=== PATIENT | male | born 1935 | race Caucasian/White ===

== ENCOUNTER 2021-09-29 15:02 | Inpatient (IN) ==
[2021-09-29] MEDS ORDERED: SIMETHICONE CHEW 125 MG TABLET PO PRN (15:04)
[2021-09-29] MEDS ORDERED: ONDANSETRON 4 MG/2 ML VIAL IV PRN (15:04)
[2021-09-29] MEDS ORDERED: ACETAMINOPHEN 325 MG TABLET PO PRN (15:04)
[2021-09-29] MEDS ORDERED: GLUCAGON 1 MG VIAL IM PRN (15:04)
[2021-09-29] MEDS ORDERED: ZALEPLON 5 MG CAPSULE PO PRN (15:04)
[2021-09-29] MEDS ORDERED: MAGNESIUM SULF RIDER 2 GM/50 ML PREMIX IV PRN (15:04)
[2021-09-29] MEDS ORDERED: diphenhydrAMINE CAP 25 MG CAPSULE PO PRN (15:04)
[2021-09-29] MEDS ORDERED: DEXTROSE 50% 25 GM/50 ML VIAL IV PRN (15:04)
[2021-09-29] MEDS ORDERED: MAGNESIUM SULF RIDER 4 GM/100 ML PREMIX IV PRN (15:04)
[2021-09-29] MEDS ORDERED: MORPHINE 2 MG/1 ML SYRINGE IV PRN (15:04)
[2021-09-29] MEDS ORDERED: POTASSIUM CHLORIDE RIDER 10 MEQ/100 ML PREMIX IV PRN (15:08)
[2021-09-29] MEDS ORDERED: DEXTROSE 10% 250 ML BAG IV PRN (15:11)
[2021-09-30] MEDS ORDERED: ENOXAPARIN 100 MG/ML SYRINGE SUBCUT ONE (02:00)
[2021-09-30] MEDS: SODIUM CHLORIDE 0.9% 1,000 ML IV SCH ×3 (03:00→21:37)
[2021-09-30] MEDS: NITROGLYCERIN 2% OINT 1 INCH/GM PACK TOP SCH ×2 (03:07→10:48)
[2021-09-30 05:29] LABS: Basophils % 0.2 % (0.0-0.8); Eosinophils # 0.3 10*3/uL (0.0-0.87); Hematocrit 36.6 VOL% (42.0-52.0); Hemoglobin 11.7 GM/DL (14.0-18.0); Immature Granulocytes % 0.2 %; Immature Granulocytes Absolute 0.02 #; Lymphocytes # 1.1 10*3/uL (1.4-4.0); Lymphocytes % 10.9 % (21.2-54.2); Mean Corpuscular Volume 94.3 FL (87-102); Mean Platelet Volume 10.6 FL (9.6-12.0); Monocytes # 0.8 10*3/uL (0.11-0.8); Monocytes % 8.5 % (1.7-12.7); Neutrophils % 77.2 % (38.7-73.9); Platelet Count 222 T/CUMM (130-400); Red Blood Count 3.88 MC/CUMM (3.8-5.5); Red Cell Distribution Width 13.2 % (9.3-17.3); White Blood Count 9.9 T/CUMM (4-12)
[2021-09-30 06:03] LABS: Alanine Aminotransferase < 6 U/L (16-61); Albumin 2.8 G/DL (3.4-5.0); Alkaline Phosphatase 68 U/L (45-117); Aspartate Amino Transferase 8 U/L (0-37); Blood Urea Nitrogen 16 MG/DL (7-18); Calcium 8.4 MG/DL (8.5-10.1); Carbon Dioxide 28 MMOL/L (21-32); Chloride 104 MMOL/L (98-107); Cholesterol 114 MG/DL (50-200); Estimated Glom Filtration Rate 66 ML/MIN; Glucose 90 MG/DL (74-106); HDL Cholesterol 38 MG/DL (40-60); Osmolality,Calculated 275.7 MOS/KG (273-304); Potassium 4.2 MMOL/L (3.5-5.1); Sodium 138 MMOL/L (136-145); Triglycerides 65 MG/DL (2-150)
[2021-09-30] MEDS ORDERED: diphenhydrAMINE CAP 50 MG CAPSULE PO ONE (06:30)
[2021-09-30] MEDS ORDERED: DIAZEPAM 5 MG TABLET PO ONE (06:30)
[2021-09-30] MEDS ORDERED: HEPARIN/NACL 0.9% 2 UNITS/ML 2,000 UNIT/1,000 ML BAG IV ONE (06:41)
[2021-09-30] MEDS ORDERED: POTASSIUM CHLORIDE RIDER 10 MEQ/100 ML PREMIX IV PRN (06:44)
[2021-09-30] MEDS ORDERED: MIDAZOLAM 2 MG/2 ML VIAL ONE (07:03)
[2021-09-30] MEDS ORDERED: HYDROmorphone 1 MG/1 ML SYRINGE ONE (07:03)
[2021-09-30] MEDS ORDERED: LABETALOL 20 MG/4 ML SYRINGE IV ONE (07:15)
[2021-09-30] MEDS: INSULIN REGULAR 100 UNIT/ML SUBCUT SCH ×4 (07:30→20:59)
[2021-09-30] MEDS ORDERED: BIVALIRUDIN 250 MG VIAL IV ONE (07:49)
[2021-09-30] MEDS ORDERED: LABETALOL 100 MG/20 ML VIAL IV ONE (08:16)
[2021-09-30] MEDS ORDERED: TICAGRELOR 90 MG TABLET ONE (08:23)
[2021-09-30] MEDS ORDERED: hydrALAZINE 20 MG/1 ML VIAL ONE (08:43)
[2021-09-30] MEDS ORDERED: atenoloL 50 MG TABLET PO SCH (09:00)
[2021-09-30] MEDS: MEMANTINE 5 MG TABLET PO SCH (09:30)
[2021-09-30] MEDS: TICAGRELOR 90 MG TABLET PO SCH ×2 (09:30→20:58)
[2021-09-30] MEDS: ASPIRIN EC 81 MG TABLET PO SCH (09:30)
[2021-09-30] MEDS: CARBIDOPA/LEVODOPA 25-100 MG TABLET PO SCH ×3 (09:30→20:58)
[2021-09-30] MEDS: hydrALAZINE 25 MG TABLET PO SCH ×2 (12:21→18:02)
[2021-09-30] MEDS ORDERED: ROSUVASTATIN 20 MG TABLET PO SCH (21:00)
[2021-10-01] MEDS: hydrALAZINE 25 MG TABLET PO SCH ×2 (00:24→06:41)
[2021-10-01 07:28] LABS: Basophils % 0.2 % (0.0-0.8); Eosinophils # 0.2 10*3/uL (0.0-0.87); Eosinophils % 2.5 % (0.00-10.9); Hematocrit 33.6 VOL% (42.0-52.0); Hemoglobin 11.2 GM/DL (14.0-18.0); Immature Granulocytes % 0.3 %; Immature Granulocytes Absolute 0.03 #; Lymphocytes # 0.9 10*3/uL (1.4-4.0); Lymphocytes % 9.4 % (21.2-54.2); Mean Corpuscular HGB Conc 33.3 GM/DL (32-36); Mean Corpuscular Volume 91.6 FL (87-102); Mean Platelet Volume 10.1 FL (9.6-12.0); Monocytes # 0.7 10*3/uL (0.11-0.8); Monocytes % 7.7 % (1.7-12.7); Neutrophils % 79.9 % (38.7-73.9); Platelet Count 230 T/CUMM (130-400); Red Blood Count 3.67 MC/CUMM (3.8-5.5); Red Cell Distribution Width 13.2 % (9.3-17.3); White Blood Count 9.4 T/CUMM (4-12)
[2021-10-01 07:51] LABS: Blood Urea Nitrogen 8 MG/DL (7-18); Calcium 8.2 MG/DL (8.5-10.1); Carbon Dioxide 23 MMOL/L (21-32); Chloride 106 MMOL/L (98-107); Estimated Glom Filtration Rate 83 ML/MIN; Glucose 113 MG/DL (74-106); Osmolality,Calculated 268.1 MOS/KG (273-304); Potassium 3.7 MMOL/L (3.5-5.1); Sodium 135 MMOL/L (136-145)
[2021-10-01 07:53] LABS: Calcium 8.1 MG/DL (8.5-10.1); Osmolality,Calculated 273.7 MOS/KG (273-304); Potassium 3.7 MMOL/L (3.5-5.1)
[2021-10-01 08:06] VITALS: BP 182/84
[2021-10-01] MEDS: INSULIN REGULAR 100 UNIT/ML SUBCUT SCH (08:21)
[2021-10-01] MEDS: SODIUM CHLORIDE 0.9% 1,000 ML IV SCH (08:26)
[2021-10-01] MEDS: ASPIRIN EC 81 MG TABLET PO SCH (08:42)
[2021-10-01] MEDS: MEMANTINE 5 MG TABLET PO SCH (08:42)
[2021-10-01] MEDS: CARBIDOPA/LEVODOPA 25-100 MG TABLET PO SCH (08:43)
[2021-10-01] MEDS: TICAGRELOR 90 MG TABLET PO SCH (08:43)
[2021-10-01] MEDS ORDERED: LOSARTAN 50 MG TABLET PO SCH (09:00)
[2021-10-01] MEDS ORDERED: amLODIPine 5 MG TABLET PO SCH (09:00)
== END 2021-10-01 11:27 | disposition home or self-care (01) | DRG 247 ==
LOC: N.TELEN 09-30 01:17
PROVIDERS: ADMIT Internal Medicine Cardiovascular Disease; ATTEND Internal Medicine Cardiovascular Disease